=== PATIENT | female | born 1950 | race Hispanic/Latino ===

== ENCOUNTER 2019-01-24 20:21 | Emergency (ER) | payer MEDICARE, OTHER ==
[2019-01-24 20:25] VITALS: BMI 36.6
[2019-01-24 20:31] VITALS: RESP 18; TEMP 97.6; O2SAT 100
[2019-01-24] MEDS ORDERED: Lidocaine 2% Inj (20ml) IJ STA (20:51)
[2019-01-24] MEDS ORDERED: Bacitracin 500 Units/gm Oint Foilpak UD TOP ONE (20:51)
[2019-01-24] MEDS ORDERED: TDAP Vaccine 0.5 mL Syr IM ONE (20:52)
--- NOTE | 2019-01-24 23:03 | ED PDOC ---
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 Pt was taking out the garbage when she hit her head on a metal door, causing a laceration to her left anterior scalp. Pt was unable to control bleeding at home, prompting visit to the ED. Denies any LOC or fall. Unknown last tetanus. Denies neck pain, back pain, headache, dizziness, vision changes, nausea, vomiting, abdominal pain, phtophobia, difficulty concentrating, numbness, weakness, paresthesias, or any other associated symptoms. <Lila Goss - Last Filed: 01/25/19 00:23> <Shady Sawant - Last Filed: 01/25/19 19:18> - General Chief Complaint: Trauma Time Seen by Provider: 01/24/19 20:24 Past Medical History - Provider Review Nursing Documentation Reviewed: Yes - Cardiac Hx Hypertension: Yes - Musculoskeletal/Rheumatological Hx Arthritis: Yes - Psychiatric Hx Substance Use: No - Surgical History Hx Hysterectomy: Yes Other/Comment: 2 meniscus tear b/l knee. hip replacement - Anesthesia Hx Anesthesia: Yes Hx Anesthesia Reactions: No Hx Malignant Hyperthermia: No <Lila Goss - Last Filed: 01/25/19 00:23> Family/Social History - Physician Review Nursing Documentation Reviewed: Yes Family/Social History: No Known Family HX Smoking Status: Never Smoked Hx Alcohol Use: Yes Frequency of alcohol use: Socially Hx Substance Use: No <Lila Goss - Last Filed: 01/25/19 00:23> Allergies/Home Meds <Lila Goss - Last Filed: 01/25/19 00:23> <Shady Sawant - Last Filed: 01/25/19 19:18> Allergies/Adverse Reactions: Allergies erythromycin base Allergy (Verified 01/24/19 20:25) RASH Home Medications: Home Meds Medication Instructions Recorded Confirmed ALPRAZolam [Xanax] 0.25 mg PO HS 01/24/19 01/24/19 Atorvastatin [Lipitor] 10 mg PO HS 01/24/19 01/24/19 amLODIPine [Norvasc] 10 mg PO DAILY 01/24/19 01/24/19 Review of Systems - Review of Systems Constitutional: Normal. absent: Fatigue, Fevers Eyes: Normal. absent: Vision Changes, Photophobia, Eye Pain ENT: Normal. absent: Epistaxis Respiratory: Normal. absent: SOB, Cough Cardiovascular: Normal. absent: Chest Pain, Palpitations, Syncope Gastrointestinal: Normal. absent: Abdominal Pain, Nausea, Vomiting Musculoskeletal: Normal. absent: Back Pain, Neck Pain Skin: Laceration Neurological: Normal. absent: Headache, Dizziness, Focal Weakness, Gait Changes, Disequilibrium, Seizure <Lila Goss - Last Filed: 01/25/19 00:23> Physical Exam Vital Signs Reviewed: Yes Vital Signs Temp Pulse Resp BP Pulse Ox 01/24/19 20:31 97.6 F 111 H 18 158/71 H 100 Temperature: Afebrile Blood Pressure: Normal Pulse: Tachycardic Respiratory Rate: Normal Appearance: Positive for: Well-Appearing, Non-Toxic, Comfortable Pain Distress: None Mental Status: Positive for: Alert and Oriented X 3 - Systems Exam Head: Present: Normocephalic, Tenderness (over laceration), Laceration (3,5 cm vertical linear laceration to left anterior scalp; small amount of active bleeding). No: Contusion Pupils: Present: PERRL Extroacular Muscles: Present: EOMI Conjunctiva: Present: Normal Mouth: Present: Moist Mucous Membranes Nose (External): Present: Atraumatic Nose (Internal): Present: No Active Bleeding Neck: Present: Normal Range of Motion. No: MIDLINE TENDERNESS, Paraspinal Tenderness Respiratory/Chest: Present: Clear to Auscultation Cardiovascular: Present: Regular Rate and Rhythm Abdomen: No: Tenderness Back: No: Midline Tenderness Upper Extremity: Present: Normal Inspection, Normal ROM, NORMAL PULSES, Neurovascularly Intact, Capillary Refill < 2s. No: Temperature Abnormalties Lower Extremity: Present: Normal ROM Neurological: Present: GCS=15, CN II-XII Intact, Speech Normal, Motor Func Grossly Intact, Normal Sensory Function, Gait Normal Skin: Present: Warm, Dry, Normal Color, Laceration (see head exam). No: Rashes Psychiatric: Present: Alert, Oriented x 3, Anxious <Lila Goss - Last Filed: 01/25/19 00:23> Vital Signs Temp Pulse Resp BP Pulse Ox 01/24/19 23:19 90 18 140/65 100 01/24/19 20:31 97.6 F 111 H 18 158/71 H 100 <Shady Sawant - Last Filed: 01/25/19 19:18> Medical Decision Making ED Course and Treatment: 01/25/19 00:17 Initial Plan: * Wound irrigation * Wound repair * Head CT * Tdap * Keflex Wound irrigated with 1000cc normal saline by assistive technology specialist Alcon. Area cleaned with betadine and locally anesthetized with 2% lidocaine. No FB or debris on exploration. Area cleaned with betadine and repaired with 4 4-0 prolene simple interrupted sutures in sterile fashion. Wound edges well approximated, hemostasis achieved. Pt tolerated procedure well without complication. Dressed with abcitracin and sterile dressing. Wound care instructions discussed. Advised to return in 7 days for suture removal. Keflex prescribed, first dose here. Tetanus updated. Head CT negative for acute pathology. Head injury precautions discussed. Diagnostic testing results and plan of care discussed with patient. Strict instructions given regarding prescription use, importance of followup, and signs/symptoms to return to ER including dizziness, vomiting, fever, signs of wound infection, or any other new/worsening symptoms. Pt verbalized understanding of discussion. Patient is A&Ox3, ambulating with steady gait, with vital signs stable for discharge. - RAD Interpretation Narrative RAD Interpretations (Text): 01/25/19 00:[address]: FINDINGS: BRAIN: Chronic periventricular and subcortical microvascular disease is seen. No acute intracranial pathology. VENTRICLES: There is generalized parenchymal atrophy noted as demonstrated by symmetrical dilatation of ventricles and sulci. ORBITS: The orbits are unremarkable. SINUSES AND MASTOIDS: The paranasal sinuses and mastoid air cells are clear. BONES: No fracture. SOFT TISSUES: Minimal forehead laceration is suggested. IMPRESSION: 1. There is generalized parenchymal atrophy. 2. Chronic periventricular and subcortical microvascular disease is seen. 3. No acute intracranial pathology. Electronically signed on Jan 24, 2019 10:17:59 PM EDT by: Melvin Camacho M.D., PORTILLO Certified By ABR & CBCCT Fellowship Trained MRI and CT Specialist Radiology Orders: 01/24/19 20:51 HEAD W/O CONTRAST [CT] Stat Assembler Molded Frames: Radiologist - Medication Orders Current Medication Orders: Discontinued Medications Bacitracin (Bacitracin) 1 ea TOP ONCE ONE Stop: 01/24/19 20:52 Last Admin: 01/24/19 21:27 Dose: 1 ea Lidocaine HCl (Lidocaine 2% 20ml Vial) 10 ml IJ ONCE STA Stop: 01/24/19 20:52 Tetanus/Reduced Diphtheria/Acell Pertussis (Boostrix Vaccine Inj) 0.5 ml IM .ONCE ONE Stop: 01/24/19 20:53 Last Admin: 01/24/19 21:25 Dose: 0.5 ml Immunization Registry Document 01/24/19 21:25 RD (Rec: 01/24/19 21:26 RD [id number]) [facility]-Date provided 01/24/19 MAR Immunization Data Document 01/24/19 21:25 RD (Rec: 01/24/19 21:26 RD [id number]) Immunization Data Vaccine Information Sheet Given Yes Vaccine Information Sheet Given Date 01/24/19 <Lila Goss - Last Filed: 01/25/19 00:23> - RAD Interpretation Radiology Orders: 01/24/19 20:51 HEAD W/O CONTRAST [CT] Stat - Medication Orders Current Medication Orders: Discontinued Medications Bacitracin (Bacitracin) 1 ea TOP ONCE ONE Stop: 01/24/19 20:52 Last Admin: 01/24/19 21:27 Dose: 1 ea Cephalexin Monohydrate (Keflex) 500 mg PO STAT STA; Protocol Stop: 01/24/19 23:02 Last Admin: 01/24/19 23:09 Dose: 500 mg Lidocaine HCl (Lidocaine 2% 20ml Vial) 10 ml IJ ONCE STA Stop: 01/24/19 20:52 Last Admin: 01/24/19 23:10 Dose: Not Given Non-Admin Reason: PA administered Tetanus/Reduced Diphtheria/Acell Pertussis (Boostrix Vaccine Inj) 0.5 ml IM .ONCE ONE Stop: 01/24/19 20:53 Last Admin: 01/24/19 21:25 Dose: 0.5 ml Immunization Registry Document 01/24/19 21:25 RD (Rec: 01/24/19 21:26 RD [id number]) [facility]-Date provided 01/24/19 MAR Immunization Data Document 01/24/19 21:25 RD (Rec: 01/24/19 21:26 RD [id number]) Immunization Data Vaccine Information Sheet Given Yes Vaccine Information Sheet Given Date 01/24/19 <AngelnellyShady - Last Filed: 01/25/19 19:18> Procedure: Wound Repair - Consent Obtained Consent obtained: Verbal - Performed by Performed by: Mid-level Provider - Indications Indication(s):: Laceration - Location Location:: Left, Anterior, Scalp Dimensions Length cm: 3.5 Depth:: Epidermis - Anesthetic Technique Anesthetic Technique: Local Local/Regional Anesthetic:: Lidocaine 2% - Debris Debris:: None - Irrigated Irrigated with ml of normal saline: 1000 - Complexity Complexity:: Simple (one layer) - Wound repair method Sutures:: # (4), Size (4-0), Type (prolene), Technique (simple interrupted) - Complications Complications: None - Patient tolerated procedure Patient Tolerated Procedure:: Well <Lila Goss - Last Filed: 01/25/19 00:23> - PA / FLAT SURFACER / Resident Statement / has reviewed & agrees with the documentation as recorded. <Shady Sawant - Last Filed: 01/25/19 19:18> Disposition/Present on Arrival - Present on Arrival Any Indicators Present on Arrival: No History of DVT/PE: No History of Uncontrolled Diabetes: No Urinary Catheter: No History of Decub. Ulcer: No History Surgical Site Infection Following: None - Disposition Have Diagnosis and Disposition been Completed?: Yes Disposition Time: 22:59 <Lila Goss - Last Filed: 01/25/19 00:23> <SavanaShady - Last Filed: 01/25/19 19:18> - Disposition Diagnosis: Head injury, Laceration Disposition: HOME/ ROUTINE Condition: IMPROVED Discharge Instructions (ExitCare): Wound Care (DC), Laceration Repair With Stitches (DC), Head Injury Observation (DC) Additional Instructions: Keflex every 6 hours for 1 week RETURN IN 7- DAYS FOR SUTURE REMOVAL Keep wound dry and covered for 48 hours After 48 hours, you may clean the wound daily with soap and water and pat dry Keep wound clean, dry, and covered Followup with primary doctor within 2 days Return to ER for any signs of wound infection including redness, tenderness, swelling, drainage, fever or any other new/worsening symptoms Prescriptions: Cephalexin [Keflex] 500 mg PO QID 7 Days #28 capsule Referrals: Jesenia Hurd MD [Medical Doctor] - [place] up with [place] [facility] [place] - Follow up with primary Forms: [employer] (Nepalese)
[2019-01-24 23:21] VITALS: BP 140/65; PULSE 90
--- NOTE | 2019-01-25 10:36 | CT ---
Date of service: 01/24/2019 PROCEDURE: CT HEAD WITHOUT CONTRAST. HISTORY: Trauma,, laceration left forehead COMPARISON: None available. TECHNIQUE: Axial computed tomography images were obtained through the head/brain without intravenous contrast. Radiation dose: Total exam DLP = 978.94 mGy-cm. This CT exam was performed using one or more of the following dose reduction techniques: Automated exposure control, adjustment of the mA and/or kV according to patient size, and/or use of iterative reconstruction technique. FINDINGS: HEMORRHAGE: No acute parenchymal, subarachnoid or extra-axial hemorrhage.. BRAIN: Suspect minor chronic white matter ischemic changes. Mild generalized volume loss. VENTRICLES: Unremarkable. No hydrocephalus. CALVARIUM: No acute calvarial fractures. There is a left lateral superior frontal scalp laceration with small bubble or 2 of subcutaneous air PARANASAL SINUSES: Minor mucosal thickening seen within the left maxillary antrum MASTOID AIR CELLS: Unremarkable as visualized. No inflammatory changes. OTHER FINDINGS: None. IMPRESSION: No acute intracranial hemorrhage. Suspect minimal chronic periventricular white matter ischemic changes. Mild generalized volume loss. Left lateral superior frontal scalp laceration
== END 2019-01-24 23:19 | disposition home or self-care (01) ==
LOC: ED 20:21
DX: S01.01XA Laceration without foreign body of scalp, initial encounter (principal); W22.09XA Striking against other stationary object, initial encounter; Y92.009 Unspecified place in unspecified non-institutional (private) residence as the place of occurrence of the external cause; Z23 Encounter for immunization

== ENCOUNTER 2019-01-31 09:17 | Emergency (ER) | payer MEDICARE, OTHER ==
[2019-01-31 09:17] VITALS: BMI 36.6
[2019-01-31 09:24] VITALS: BP 140/80; PULSE 91; RESP 18; TEMP 98.2; O2SAT 99
--- NOTE | 2019-01-31 09:40 | ED PDOC ---
Arrival/HPI - General Chief Complaint: Abnormal Skin Integrity Time Seen by Provider: 01/31/19 09:31 Historian: Patient - History of Present Illness Narrative History of Present Illness (Text): 01/31/19 09:45 68 year old female, whose past medical history includes anxiety, presents to the emergency department for suture removal. Patient reports sutures were placed 01/24/19 after patient hit her head on the metal door. She states she has been taking her antibiotics as prescribed. Patient denies any fever, chills, nausea, vomiting, signs of wound infection, headache, dizziness, or any other complaints. PMD: Dr. Montes Past Medical History - Provider Review Nursing Documentation Reviewed: Yes - Reproductive Menopause: Yes - Cardiac Hx Hypertension: Yes - Musculoskeletal/Rheumatological Hx Arthritis: Yes - Psychiatric Hx Substance Use: No - Surgical History Hx Hysterectomy: Yes Other/Comment: 2 meniscus tear b/l knee. hip replacement - Anesthesia Hx Anesthesia: Yes Hx Anesthesia Reactions: No Hx Malignant Hyperthermia: No Family/Social History - Physician Review Nursing Documentation Reviewed: Yes Family/Social History: No Known Family HX Smoking Status: Never Smoked Hx Alcohol Use: Yes Hx Substance Use: No Allergies/Home Meds Allergies/Adverse Reactions: Allergies erythromycin base Allergy (Verified 01/24/19 20:25) RASH Home Medications: Home Meds Medication Instructions Recorded Confirmed ALPRAZolam [Xanax] 0.25 mg PO HS 01/24/19 01/24/19 Atorvastatin [Lipitor] 10 mg PO HS 01/24/19 01/24/19 amLODIPine [Norvasc] 10 mg PO DAILY 01/24/19 01/24/19 Review of Systems - Physician Review All systems were reviewed & negative as marked: Yes - Review of Systems Constitutional: Normal. absent: Fevers, Other (chills) Eyes: Normal. absent: Vision Changes Respiratory: Normal. absent: SOB, Cough Cardiovascular: absent: Chest Pain, Palpitations, Syncope Gastrointestinal: Normal. absent: Abdominal Pain, Nausea, Vomiting Musculoskeletal: Normal. absent: Back Pain, Neck Pain Skin: Laceration (sutured, well healing). absent: Rash, Cellulitis Neurological: absent: Headache, Dizziness Physical Exam Vital Signs Reviewed: Yes Vital Signs Temp Pulse Resp BP Pulse Ox 01/31/19 09:17 98.2 F 91 H 18 140/80 99 Temperature: Afebrile Blood Pressure: Normal Pulse: Regular Respiratory Rate: Normal Appearance: Positive for: Well-Appearing, Non-Toxic, Comfortable Pain Distress: None Mental Status: Positive for: Alert and Oriented X 3 - Systems Exam Head: Present: Atraumatic, Normocephalic, Laceration (well healing 3cm vertical linear laceration to the left anterior scalp. 4 sutures intact) Pupils: Present: PERRL Extroacular Muscles: Present: EOMI Conjunctiva: Present: Normal Mouth: Present: Moist Mucous Membranes Neurological: Present: GCS=15, Speech Normal, Gait Normal Skin: Present: Warm, Dry, Normal Color, Laceration (well healing to left anterior scalp, sutures intact; no redness, erythema, warmth, drainage, or foul odor). No: Rashes Psychiatric: Present: Alert, Oriented x 3, Anxious Medical Decision Making ED Course and Treatment: Initial Plan: * Suture Removal 9:30 4 prolene sutures removed from left scalp without difficulty using clean technique. Pt tolerated procedure well without complication. No signs of infection. No redness, warmth, drainage, streaking, or foul odor. Wound care discussed. Advised PMD followup. Diagnostic testing results and plan of care discussed with patient. Strict instructions given regarding importance of followup, and signs/symptoms to return to ER including signs of wound infection, fever, dizziness, nausea, headache, or any other new/worsening symptoms. Pt verbalized understanding of discussion. Patient is A&Ox3, ambulating with steady gait, with vital signs stable for discharge. - Scribe Statement The provider has reviewed the documentation as recorded by the Cb Lee Provider Scribe Attestation: All medical record entries made by the Cb were at my direction and personally dictated by me. I have reviewed the chart and agree that the record accurately reflects my personal performance of the history, physical exam, medical decision making, and the department course for this patient. I have also personally directed, reviewed, and agree with the discharge instructions and disposition. Disposition/Present on Arrival - Present on Arrival Any Indicators Present on Arrival: No History of DVT/PE: No History of Uncontrolled Diabetes: No Urinary Catheter: No History of Decub. Ulcer: No History Surgical Site Infection Following: None - Disposition Have Diagnosis and Disposition been Completed?: Yes Diagnosis: Visit for suture removal Disposition: HOME/ ROUTINE Disposition Time: 09:39 Patient Plan: Discharge Condition: IMPROVED Discharge Instructions (ExitCare): Stitches Removal Additional Instructions: Keep laceration clean Followup with primary doctor within 2 days Return to ER with any new/worsening symptoms Referrals: Mitchell Montes, [Family Provider] - Follow up with primary Forms: [employer] (Bulgarian), WORK NOTE
== END 2019-01-31 09:50 | disposition home or self-care (01) ==
LOC: ED 09:17
DX: Z48.02 Encounter for removal of sutures (principal); I10 Essential (primary) hypertension

== ENCOUNTER 2019-03-11 08:32 | Outpatient (CLI) | payer MEDICARE, OTHER | END 2019-03-11 08:33 | disposition home or self-care (01) | LOC: RAD 08:32 ==